=== PATIENT | female | born 1985 | race Two or more races ===

== ENCOUNTER 2024-05-17 10:04 | Emergency (ER) | payer SELFPAY ==
[~2024-05-17] VITALS: Ht 172.7 cm; Wt 89.0 kg
[2024-05-17] MEDS ORDERED: NAPR-957 PO (12:45)
[2024-05-17] MEDS: KETOROLAC TROMETH 30 MG/ML 1ML VIAL IM ONE (13:47)
[2024-05-17] MEDS: ACETAMINOPHEN 325 MG TAB PO ONE (13:48)
[2024-05-17 14:17] VITALS: BP 149/90; PULSE 72; RESP 18; TEMP 98.1; O2SAT 99
== END 2024-05-17 14:21 | disposition home or self-care (01) ==
LOC: ER 10:04
DX: M71.22 Synovial cyst of popliteal space [Baker], left knee (principal); M79.89 Other specified soft tissue disorders; Z79.899 Other long term (current) drug therapy
CPT/HCPCS: 73562; 93971; 96372; 99285; J1885

== ENCOUNTER 2024-05-22 11:19 | Emergency (ER) | payer SELFPAY ==
[~2024-05-22] VITALS: Ht 172.7 cm; Wt 91.3 kg
[~2024-05-22 11:19] MED LIST: NAPR-957 PO
[2024-05-22 12:20] VITALS: BP 169/86; PULSE 90; RESP 16; TEMP 98.7; O2SAT 97
== END 2024-05-22 14:53 | disposition home or self-care (01) ==
LOC: ER 11:19
DX: M71.22 Synovial cyst of popliteal space [Baker], left knee (principal); Z79.899 Other long term (current) drug therapy
CPT/HCPCS: 93971